=== PATIENT | male | born 1955 | race Two or more races ===

== ENCOUNTER → 2019-03-31 | Day surgery (SDC) | payer OTHER ==
[~2019-03-31] VITALS: Ht 182.9 cm; Wt 99.8 kg
[~2019-03-31] MED LIST: CIPROFLOXACIN 400MG/200ML 200 ML IV ONE; HYDROmorphone HCL 2 MG/ML VL IV PRN; METOCLOPRAMIDE HCL 5MG/ml INJ 2ml VIAL IV PRN; MIDAZOLAM HCL 1MG/1ML-2 ML VIAL ONE; MORPHINE SULFATE 4 MG/ML SYR/VIAL IV PRN; ONDANSETRON HCL 4 MG/2 ML VIAL ONE; PROPOFOL 10 MG/ML 20 ML IV ONE; SODIUM CHLORIDE LOCK 10 ML ONE; fentaNYL CITRATE 100 MCG/2 ML VL IV PRN; fentaNYL CITRATE 100 MCG/2 ML VL ONE
[2019-03-31 11:47] VITALS: BP 124/86
== END | disposition home or self-care (01) ==
LOC: SUR 08:29
PROVIDERS: ATTEND Urology
DX: N40.0 Benign prostatic hyperplasia without lower urinary tract symptoms (principal); E78.5 Hyperlipidemia, unspecified; I11.0 Hypertensive heart disease with heart failure; I50.9 Heart failure, unspecified; I25.2 Old myocardial infarction; E66.3 Overweight; Z79.899 Other long term (current) drug therapy; Z98.890 Other specified postprocedural states; Z68.29 Body mass index [BMI] 29.0-29.9, adult
CPT/HCPCS: 55700; 76942; 88305; 88342; J0744; J2250; J2405; J2704; J3010